=== PATIENT | female | born 1965 | race Caucasian/White ===

== ENCOUNTER 2019-03-11 12:58 | Emergency (ER) | payer OTHER ==
--- NOTE | 2019-03-11 13:21 | EDM.PDOC ---
Scribed by Tyesha Zamora 03/11/19 1321 for Thad Ring MD ED HPI GENERAL MEDICAL PROBLEM - General Chief Complaint: ENT Problem Stated Complaint: ENT/PAIN Time Seen by Provider: 03/11/19 13:10 Source of Information: Reports: Patient, RN, RN Notes Reviewed History Limitations: Reports: No Limitations - History of Present Illness INITIAL COMMENTS - FREE TEXT/NARRATIVE: Patient presents to ER with complaint of right sided ear pain. She states she was on amoxicillin 2 weeks ago for an ear infection, but it still hurts. She states that amoxicillin really does not work for her. Denies any drainage from the ear. Denies any chills, fevers or any other symptoms. Onset: Gradual Duration: Getting Worse Location: Reports: Other (right ear) Quality: Reports: Ache Severity: Moderate Improves with: Reports: None Worsens with: Reports: None Associated Symptoms: Reports: No Other Symptoms Right Ear Pain Score (Numeric/FACES): 4 Past Medical History HEENT History: Reports: Otitis Media Endocrine/Metabolic History: Reports: Obesity/BMI 30+ Social & Family History - Family History Family Medical History: Noncontributory - Living Situation & Occupation Living situation: Reports: with Family ED ROS ENT - Review of Systems Review Of Systems: ROS reveals no pertinent complaints other than HPI. ED EXAM, ENT - Physical Exam Exam: See Below Exam Limited By: No Limitations General Appearance: Alert, No Apparent Distress, Obese Eye Exam: Bilateral Eye: Normal Inspection Ears: Normal External Exam, Normal Canal, Hearing Grossly Normal, TM Bulging (Rt ), TM Dullness (B/L), TM Erythema (Rt). No: Auricular Tenderness, Mastoid Swelling, Mastoid Tenderness, Canal Blood, Canal Discharge, TM Blood, TM Fluid, TM Perforation Nose: Normal Inspection, Normal Mucousa, No Blood Mouth/Throat: Normal Inspection, Normal Gums, Normal Lips, Normal Oropharynx, Normal Teeth Head: Atraumatic, Normocephalic Neck: Normal Inspection, Supple, Non-Tender, Full Range of Motion. No: Lymphadenopathy (L), Lymphadenopathy (R) Respiratory/Chest: No Respiratory Distress, Lungs Clear, Normal Breath Sounds, No Accessory Muscle Use, Chest Non-Tender Cardiovascular: Regular Rate, Rhythm Neurological: Alert, Oriented, No Motor/Sensory Deficits Psychiatric: Normal Mood Skin: Warm, Dry, Intact, Normal Color, No Rash Course - Vital Signs Last Recorded V/S: Last Vital Signs Temp 97.4 F 03/11/19 13:12 Pulse 97 03/11/19 13:12 Resp 16 03/11/19 13:12 BP 139/74 03/11/19 13:12 Pulse Ox 95 03/11/19 13:12 Departure - Departure Time of Disposition: 13:15 Disposition: Home, Self-Care 01 Condition: Good Clinical Impression: Otitis media Qualifiers: Otitis media type: suppurative Chronicity: acute Laterality: right Recurrence: recurrent Spontaneous tympanic membrane rupture: without spontaneous rupture Qualified Code(s): H66.004 - Acute suppurative otitis media without spontaneous rupture of ear drum, recurrent, right ear - Discharge Information *PRESCRIPTION DRUG MONITORING PROGRAM REVIEWED*: Not Applicable *COPY OF PRESCRIPTION DRUG MONITORING REPORT IN PATIENT PEARL: Not Applicable Instructions: Otitis Media, Adult, [id number] Forms: ED Department Discharge Additional Instructions: RX: Clindamycin 300mg. Follow up in clinic if not improving in 5 to 7 days. I have read and agree with the documentation that has been completed regarding this visit. By signing this record, I attest that the documentation was completed in my physical presence and is an accurate record of the encounter.
== END 2019-03-11 13:25 | disposition home or self-care (01) ==
LOC: DL.ED 12:58
DX: H66.004 Acute suppurative otitis media without spontaneous rupture of ear drum, recurrent, right ear (principal)
CPT/HCPCS: 99282

== ENCOUNTER 2021-03-25 16:45 | Emergency (ER) | payer OTHER ==
[2021-03-25] MEDS ORDERED: Ondansetron 4 MG/2 ML SDV IVPUSH ONE (17:41)
[2021-03-25] MEDS ORDERED: Meclizine 12.5 MG Tab PO ONE (17:42)
--- NOTE | 2021-03-25 17:49 | EDM.PDOC ---
ED HPI GENERAL MEDICAL PROBLEM - General Chief Complaint: General Stated Complaint: HBP Time Seen by Provider: 03/25/21 17:40 Source of Information: Reports: Patient History Limitations: Reports: No Limitations - History of Present Illness INITIAL COMMENTS - FREE TEXT/NARRATIVE: This 55 yo female patient was brought to the ED due to dizziness and nause/vomiting. The patient reports an abrupt onset of symptoms. The patient reports her symptoms have improved, but she continues to have dizziness upon rapid head movement as well as with opening her eyes. The patient reports she has had similar symptoms in the past, but they have not lasted this long. Onset: Today Duration: Minutes:, Improving Location: Reports: Head, Abdomen Quality: Reports: Other Severity: Moderate Improves with: Reports: Rest Worsens with: Reports: Movement Context: Reports: Other Associated Symptoms: Reports: Nausea/Vomiting right pectoral Pain Score (Numeric/FACES): 1 - Related Data Allergies Allergy/AdvReac Type Severity Reaction Status Date / Time No Known Allergies Allergy Verified 03/25/21 17:05 Home Meds: Home Meds Albuterol Sulfate [Proair Hfa] 8.5 gm IH Q4H PRN 03/25/21 [History] Budesonide/Formoterol Fumarate [Symbicort 160-4.5 Mcg Inhaler] 6 gm IH DAILY 03/25/21 [History] FLUoxetine HCl [Prozac] 20 mg PO DAILY 03/25/21 [History] Loratadine/Pseudoephedrine [Allergy Relief-Nasal Decong Tb] 10 mg PO DAILY 03/25/21 [History] Montelukast [Singulair] 10 mg PO DAILY 03/25/21 [History] Phentermine HCl 37.5 mg PO DAILY 03/25/21 [History] Potassium Chloride [Klor-Con 10] 10 meq PO DAILY 03/25/21 [History] Pramipexole [Mirapex] 0.25 mg PO BID 03/25/21 [History] Tiotropium [place] [Spiriva Respimat] 4 gm INH DAILY 03/25/21 [History] lisinopriL [Lisinopril] 10 mg PO DAILY 03/25/21 [History] Past Medical History HEENT History: Reports: Otitis Media Cardiovascular History: Reports: Hypertension Respiratory History: Reports: Asthma Musculoskeletal History: Reports: None Neurological History: Reports: None Psychiatric History: Reports: Anxiety, Depression Endocrine/Metabolic History: Reports: Obesity/BMI 30+ Hematologic History: Reports: None Immunologic History: Reports: None Oncologic (Cancer) History: Reports: None Dermatologic History: Reports: None - Infectious Disease History Infectious Disease History: Reports: None - Past Surgical History GI Surgical History: Reports: Appendectomy Female Surgical History: Reports: Breast Biopsy, Tubal Ligation Social & Family History - Family History Family Medical History: No Pertinent Family History - Tobacco Use Tobacco Use Status *Q: Never Tobacco User Second Hand Smoke Exposure: No - Caffeine Use Caffeine Use: Reports: Coffee - Recreational Drug Use Recreational Drug Use: Yes Recreational Drug Type: Reports: Marijuana/Hashish Recreational Drug Use Frequency: Daily - Living Situation & Occupation Living situation: Reports: with Family ED ROS GENERAL - Review of Systems Review Of Systems: Comprehensive ROS is negative, except as noted in HPI. ED EXAM, GENERAL - Physical Exam Exam: See Below Exam Limited By: No Limitations General Appearance: Alert, WD/WN, Moderate Distress Eye Exam: Bilateral Eye: EOMI, Normal Inspection, PERRL Ears: Normal External Exam, Normal Canal, Hearing Grossly Normal, Normal TMs Nose: Normal Inspection, Normal Mucosa, No Blood Throat/Mouth: Normal Inspection, Normal Lips, Normal Teeth, Normal Gums, Normal Oropharynx, Normal Voice, No Airway Compromise Head: Atraumatic, Normocephalic Neck: Normal Inspection, Supple, Non-Tender, Full Range of Motion Respiratory/Chest: No Respiratory Distress, Lungs Clear, Normal Breath Sounds, No Accessory Muscle Use, Chest Non-Tender Cardiovascular: Normal Peripheral Pulses, Regular Rate, Rhythm, No Edema, No Gallop, No JVD, No Murmur, No Rub GI/Abdominal: Normal Bowel Sounds, Soft, Non-Tender, No Organomegaly, No Distention, No Abnormal Bruit, No Mass, Other (obese) (Female) Exam: Deferred Rectal (Female) Exam: Deferred Back Exam: Normal Inspection, Full Range of Motion, NT Extremities: Normal Inspection, Normal Range of Motion, Non-Tender, Normal Capillary Refill, No Pedal Edema Neurological: Alert, Oriented, CN II-XII Intact, Normal Cognition, Normal Gait, Normal Reflexes, No Motor/Sensory Deficits Psychiatric: Normal Affect, Normal Mood Skin Exam: Warm, Dry, Intact, Normal Color, No Rash Lymphatic: No Adenopathy Course - Vital Signs Last Recorded V/S: Last Vital Signs Temp 96.4 F L 03/25/21 16:55 Pulse 75 03/25/21 16:55 Resp 20 03/25/21 16:55 BP 172/84 H 03/25/21 16:55 Pulse Ox 94 L 03/25/21 16:55 - Orders/Labs/Meds Labs: Laboratory Tests 03/25/21 03/25/21 Range/Units 17:53 17:53 WBC 11.5 H (5.0-10.0) 10^3/uL RBC 5.08 (4.2-5.4) 10^6/uL Hgb 14.2 (12.0-16.0) g/dL Hct 43.1 (37.0-47.0) % MCV 84.8 (80-100) fL MCH 28.0 (27.0-34.0) pg MCHC 32.9 L (33.0-35.0) g/dL Plt Count 263 (150-450) 10^3/uL Neut % (Auto) 78.4 H (42.2-75.2) % Lymph % (Auto) 14.7 L (20.5-50.1) % [place] % (Auto) 6.1 (2-8) % Eos % (Auto) 0.5 L (1.0-3.0) % Baso % (Auto) 0.3 (0.0-1.0) % Sodium 140 (136-145) mmol/L Potassium 4.3 (3.5-5.1) mmol/L Chloride 104 (98-107) mmol/L Carbon Dioxide 29 (21-32) mmol/L Anion Gap 11.3 (7-13) mEq/L BUN 12 (7-18) mg/dL Creatinine 0.70 (0.55-1.02) mg/dL Est Cr Clr Drug Dosing 86.01 mL/min Estimated GFR (MDRD) > 60 BUN/Creatinine Ratio 17.1 (No establ ref range) Glucose 128 H (70-99) mg/dL Calcium 8.7 (8.5-10.1) mg/dL Total Bilirubin 0.3 (0.2-1.0) mg/dL AST 13 L (15-37) U/L ALT 22 (14-59) U/L Alkaline Phosphatase 88 (46-116) U/L Troponin I High Sens 5 (<=51) pg/mL Total Protein 7.1 (6.4-8.2) g/dL Albumin 3.2 L (3.4-5.0) g/dL Globulin 3.9 Albumin/Globulin Ratio 0.82 Meds: Medications Discontinued Medications Generic Name Dose Route Start Last Admin Trade Name Ivis PRN Reason Stop Dose Admin Meclizine HCl 25 mg 03/25/21 17:42 03/25/21 17:59 Meclizine 12.5 Mg Tab PO 03/25/21 17:43 25 mg ONETIME ONE Administration Ondansetron HCl 4 mg 03/25/21 17:41 03/25/21 17:59 Ondansetron 4 Mg/2 Ml Sdv IVPUSH 03/25/21 17:42 4 mg ONETIME ONE Administration Departure - Departure Time of Disposition: 18:44 Disposition: Home, Self-Care 01 Condition: Fair Clinical Impression: Vertigo - Discharge Information *PRESCRIPTION DRUG MONITORING PROGRAM REVIEWED*: Not Applicable *COPY OF PRESCRIPTION DRUG MONITORING REPORT IN PATIENT [place]AR[place]: Not Applicable Instructions: Vertigo, [id number] Forms: ED Department Discharge Care Plan Goals: The patient was advised of examination, lab and EKG results during the visit. The patient was given an IV dose of Zofran and Meclizine while in the ED. The patient was discharged with a script for Zofran (4 mg) #20 to take 1 by mouth every 6 hours as needed for nausea and Meclizine (12.5 mg) #10 to take 1 by mouth 2 times per day as needed for dizziness. If the patient has any additional symptoms or concerns, the patient should either return to the emergency department or visit her primary care facility. Sepsis Event Note (ED) - Evaluation Sepsis Screening Result: No Definite Risk - Focused Exam Vital Signs: Vital Signs Temp Pulse Resp BP Pulse Ox 03/25/21 16:55 96.4 F L 75 20 172/84 H 94 L
[2021-03-25 18:19] LABS: ANION GAP 11.3 mEq/L (7-13); CHLORIDE,CL 104 mmol/L (98-107); SODIUM,NA 140 mmol/L (136-145)
== END 2021-03-25 19:30 | disposition home or self-care (01) ==
LOC: DL.ED 16:45
DX: R42 Dizziness and giddiness (principal); I10 Essential (primary) hypertension; E66.9 Obesity, unspecified; Z68.43 Body mass index [BMI] 50.0-59.9, adult; Z79.899 Other long term (current) drug therapy
CPT/HCPCS: 36415; 80053; 84484; 85025; 96374; 99284; A9270; J2405